=== PATIENT | male | born 1960 | race Caucasian/White ===

== ENCOUNTER 2021-12-19 17:39 | Outpatient (CLI) | payer MEDICAID | END 2021-12-19 23:59 | disposition short-term general hospital (02) | LOC: EMS 17:39 | DX: R53.1 Weakness (principal); R42 Dizziness and giddiness; R20.0 Anesthesia of skin; H53.8 Other visual disturbances; R06.4 Hyperventilation; R03.0 Elevated blood-pressure reading, without diagnosis of hypertension; R00.0 Tachycardia, unspecified | CPT/HCPCS: A0425; A0428; A0999 ==

== ENCOUNTER 2021-12-29 11:36 | Outpatient (CLI) | payer MEDICAID | END 2021-12-29 11:37 | disposition short-term general hospital (02) | LOC: EMS 11:36 | DX: R55 Syncope and collapse (principal) | CPT/HCPCS: A0425; A0429; A0999 ==

== ENCOUNTER 2022-01-03 20:55 | Outpatient (CLI) | payer MEDICAID | END 2022-01-03 20:56 | disposition short-term general hospital (02) | LOC: EMS 20:55 | DX: R42 Dizziness and giddiness (principal); R06.02 Shortness of breath; R20.2 Paresthesia of skin; R00.0 Tachycardia, unspecified; I10 Essential (primary) hypertension | CPT/HCPCS: A0425; A0429; A0999 ==

== ENCOUNTER 2022-02-25 16:27 | Outpatient (CLI) | payer MEDICAID | END 2022-02-25 16:28 | disposition short-term general hospital (02) | LOC: EMS 16:27 | DX: R00.0 Tachycardia, unspecified (principal); R00.2 Palpitations; R42 Dizziness and giddiness; R20.2 Paresthesia of skin | CPT/HCPCS: A0425; A0429; A0999 ==

== ENCOUNTER → 2022-03-23 | Outpatient (CLI) | payer MEDICAID | END | disposition short-term general hospital (02) | LOC: EMS 15:48 | DX: M79.622 Pain in left upper arm (principal); R20.2 Paresthesia of skin; R42 Dizziness and giddiness; R06.4 Hyperventilation; R50.9 Fever, unspecified; R68.2 Dry mouth, unspecified | CPT/HCPCS: A0425; A0427; A0999 ==

== ENCOUNTER 2022-04-28 01:19 | Outpatient (CLI) | payer MEDICAID | END 2022-04-28 01:20 | disposition short-term general hospital (02) | LOC: EMS 01:19 | DX: R07.89 Other chest pain (principal); R00.0 Tachycardia, unspecified; R20.0 Anesthesia of skin; R42 Dizziness and giddiness | CPT/HCPCS: A0425; A0427; A0999 ==

== ENCOUNTER 2022-05-31 19:28 | Outpatient (CLI) | payer MEDICAID | END 2022-05-31 23:59 | disposition short-term general hospital (02) | LOC: EMS 19:28 | DX: R42 Dizziness and giddiness (principal); R25.2 Cramp and spasm; R20.0 Anesthesia of skin | CPT/HCPCS: A0425; A0429; A0999 ==

== ENCOUNTER 2022-06-06 20:37 | Outpatient (CLI) | payer MEDICAID | END 2022-06-06 23:59 | disposition short-term general hospital (02) | LOC: EMS 20:37 | DX: R07.89 Other chest pain (principal); M25.512 Pain in left shoulder; M54.2 Cervicalgia; I10 Essential (primary) hypertension | CPT/HCPCS: A0425; A0427; A0999 ==

== ENCOUNTER → 2022-06-18 | Outpatient (CLI) | payer MEDICAID | END | disposition short-term general hospital (02) | LOC: EMS 12:48 | DX: R20.0 Anesthesia of skin (principal); M79.605 Pain in left leg; M79.602 Pain in left arm; M54.2 Cervicalgia; R42 Dizziness and giddiness | CPT/HCPCS: A0425; A0429; A0999 ==

== ENCOUNTER 2022-07-08 19:45 | Outpatient (CLI) | payer MEDICAID | END 2022-07-08 23:59 | disposition short-term general hospital (02) | LOC: EMS 19:45 | DX: I10 Essential (primary) hypertension (principal); F41.9 Anxiety disorder, unspecified; R00.0 Tachycardia, unspecified; R20.2 Paresthesia of skin; R29.810 Facial weakness; R42 Dizziness and giddiness; H53.8 Other visual disturbances | CPT/HCPCS: A0425; A0429; A0999 ==

== ENCOUNTER 2022-08-10 16:17 | Outpatient (CLI) | payer MEDICAID | END 2022-08-10 23:59 | disposition short-term general hospital (02) | LOC: EMS 16:17 | DX: R07.9 Chest pain, unspecified (principal); R20.0 Anesthesia of skin | CPT/HCPCS: A0425; A0427; A0999 ==

== ENCOUNTER 2022-09-05 12:48 | Outpatient (CLI) | payer MEDICAID | END 2022-09-05 12:49 | disposition short-term general hospital (02) | LOC: EMS 12:48 | DX: R07.89 Other chest pain (principal); R20.0 Anesthesia of skin; I10 Essential (primary) hypertension; R25.1 Tremor, unspecified | CPT/HCPCS: A0425; A0427; A0999 ==

== ENCOUNTER 2022-12-12 14:01 | Outpatient (CLI) | payer MEDICAID | END 2022-12-12 14:02 | disposition short-term general hospital (02) | LOC: EMS 14:01 | DX: I10 Essential (primary) hypertension (principal); M79.602 Pain in left arm; R20.2 Paresthesia of skin; R51.9 Headache, unspecified; R25.8 Other abnormal involuntary movements; R53.1 Weakness | CPT/HCPCS: A0425; A0429; A0999 ==

== ENCOUNTER 2023-03-03 22:50 | Outpatient (CLI) | payer MEDICAID | END 2023-03-03 23:59 | disposition short-term general hospital (02) | LOC: EMS 22:50 | DX: R00.0 Tachycardia, unspecified (principal); R00.2 Palpitations; R53.81 Other malaise | CPT/HCPCS: A0425; A0427; A0999 ==

== ENCOUNTER 2023-05-13 13:04 | Outpatient (CLI) | payer MEDICAID | END 2023-05-13 13:05 | disposition short-term general hospital (02) | LOC: EMS 13:04 | DX: R42 Dizziness and giddiness (principal); R07.9 Chest pain, unspecified; H53.489 Generalized contraction of visual field, unspecified eye; R51.9 Headache, unspecified | CPT/HCPCS: A0425; A0429; A0999 ==

== ENCOUNTER 2023-07-23 17:59 | Outpatient (CLI) | payer MEDICAID | END 2023-07-23 23:59 | disposition critical access hospital (66) | LOC: EMS 17:59 | PROVIDERS: ATTEND Emergency Medicine | DX: R07.9 Chest pain, unspecified (principal); R10.9 Unspecified abdominal pain; R11.0 Nausea; I10 Essential (primary) hypertension | CPT/HCPCS: A0425; A0427; A0999 ==

== ENCOUNTER 2023-09-05 15:45 | Outpatient (CLI) | payer MEDICAID | END 2023-09-05 23:59 | disposition short-term general hospital (02) | LOC: EMS 15:45 | DX: R55 Syncope and collapse (principal); R00.0 Tachycardia, unspecified | CPT/HCPCS: A0425; A0429; A0999 ==

== ENCOUNTER 2023-09-14 19:14 | Outpatient (CLI) | payer MEDICAID | END 2023-09-14 23:59 | disposition short-term general hospital (02) | LOC: EMS 19:14 | DX: R07.89 Other chest pain (principal); I10 Essential (primary) hypertension; R42 Dizziness and giddiness; R68.84 Jaw pain; H53.8 Other visual disturbances | CPT/HCPCS: A0425; A0427; A0999 ==

== ENCOUNTER 2023-10-12 18:10 | Outpatient (CLI) | payer MEDICAID | END 2023-10-12 23:59 | disposition short-term general hospital (02) | LOC: EMS 18:10 | DX: I10 Essential (primary) hypertension (principal); R25.1 Tremor, unspecified; R51.9 Headache, unspecified; R42 Dizziness and giddiness; R10.11 Right upper quadrant pain | CPT/HCPCS: A0425; A0429; A0999 ==

== ENCOUNTER 2023-11-03 17:51 | Outpatient (CLI) | payer MEDICAID | END 2023-11-03 23:59 | disposition home or self-care (01) | LOC: EMS 17:51 | DX: R07.9 Chest pain, unspecified (principal); R20.2 Paresthesia of skin; R20.0 Anesthesia of skin; R06.82 Tachypnea, not elsewhere classified; I10 Essential (primary) hypertension | CPT/HCPCS: A0425; A0427; A0999 ==